=== PATIENT | male | born 1960 | race Caucasian/White ===

== ENCOUNTER 2023-06-15 14:37 | Outpatient (OUT) | payer BC, SELFPAY ==
--- NOTE | 2023-06-15 14:44 | ECG_ITS ---
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
[2023-06-15 15:35] LABS: Basophils Absolute Auto 0.1 10^3/uL (0.0-0.1); Basophils Percent Auto 0.9 % (0.2-2.0); Eosinophils Absolute Auto 0.7 10^3/uL (0.0-0.7); Eosinophils Percent Auto 8.2 % (0.9-7.0); Hematocrit 43.3 % (42.0-54.0); Hemoglobin 14.8 g/dL (14.0-18.0); Immature Granulocytes Abs Auto 0.03 10^3/uL (0.00-0.03); Immature Granulocytes Pct Auto 0.3 % (0.0-0.5); Lymphocytes Absolute Auto 2.3 10^3/uL (1.2-3.8); Lymphocytes Percent Auto 25.9 % (20.5-60.0); Mean Corpuscular HGB Conc 34.2 g/dL (29.9-35.2); Mean Corpuscular Hemoglobin 30.1 pg (25.9-34.0); Mean Corpuscular Volume 88.2 fL (80.0-94.0); Mean Platelet Volume 10.7 fL (9.5-13.5); Monocytes Absolute Auto 0.7 10^3/uL (0.3-0.8); Monocytes Percent Auto 7.5 % (1.7-12.0); Neutrophils Absolute Auto 5.1 10^3/uL (1.4-6.5); Neutrophils Percent Auto 57.2 % (43.0-75.0); Platelet Count 227 10^3/uL (150-450); Red Blood Count 4.91 10^6/uL (4.70-6.10); Red Cell Distribution Width 12.4 % (11.0-15.0); White Blood Count 8.9 10^3/uL (4.0-11.0)
[2023-06-15 15:59] LABS: Partial Thromboplastin Time 25.6 sec (22.3-36.2); Prothrombin Time 9.8 sec (9.0-11.6)
[2023-06-15 16:01] LABS: INR <0.93
[2023-06-15 16:08] LABS: Anion Gap 13.6; BUN Creatinine Ratio 13.5; Calcium 9.1 mg/dL (8.5-10.1); Carbon Dioxide 27.3 mmol/L (21.0-32.0); Chloride 102 mmol/L (98-107); Estimated GFR (African America >60 (>=60); Estimated GFR (Non-African Ame >60 (>=60); Glucose 101 mg/dL (74-106); Potassium 3.9 mmol/L (3.5-5.1); Sodium 139 mmol/L (136-145)
== END 2023-06-15 14:38 | disposition home or self-care (01) ==
LOC: PST 14:41
PROVIDERS: PCP Family Medicine; Visit Provider Urology
DX: Z01.810 Encounter for preprocedural cardiovascular examination (principal); Z01.812 Encounter for preprocedural laboratory examination; D49.4 Neoplasm of unspecified behavior of bladder; R31.9 Hematuria, unspecified; F31.9 Bipolar disorder, unspecified; H91.90 Unspecified hearing loss, unspecified ear; F32.A Depression, unspecified; Z87.820 Personal history of traumatic brain injury; J44.9 Chronic obstructive pulmonary disease, unspecified
CPT/HCPCS: 36415; 80048; 85025; 85610; 85730; 93005

== ENCOUNTER 2023-06-23 10:03 | Day surgery (SDC) | payer BC, MEDICAID, SELFPAY ==
[2023-06-15 15:02] VITALS: BP 130/97; PULSE 69; RESP 20; TEMP 36.5; O2SAT 97; BMI 28.8
[2023-06-23] VITALS (9 sets, daily range): BP systolic 118–151; BP diastolic 68–86; PULSE 57–78; RESP 16–20; TEMP 36.3; O2SAT 96–99; BMI 28.8
[2023-06-23] MEDS: LACTATED RINGER'S SOLUTION 1,000 ML 50 ML IV (11:06)
[2023-06-23] MEDS: CEFAZOLIN SODIUM/DEXTROSE,ISO 1 GM/50 ML IV.SOLN IV (12:04)
--- NOTE | 2023-06-23 13:03 | PM.URSON ---
Urology Surgery Operative Note Operative Note Procedure Date: 06/23/23 Time Out Performed: yes Pre-op Diagnosis: bladder tumor and gross hematuria Post-op Diagnosis: same as pre-op Procedures performed: #1. Cystoscopy. #2. Transurethral resection of bladder tumor approximately 3 cm. #3. Right rigid ureteral dilation.#4. Right ureteroscopy. #5. urethral dilation with [place] sounds to 28 Setswana. Anesthesia: JEFFERYA Primary Surgeon: Roosevelt Michel Complications: none Estimated blood loss (mL): 5 Findings: centimeter bladder tumor immediately adjacent to the right ureteral orifice Specimens: bladder tumor Indications for Procedures: this gentleman had gross hematuria which led to cystoscopy and his bladder tumor was identified. He now presents for TURBT and possible ureteroscopy and stent placement. He has signed an informed consent after all risks were explained. Detailed description of Procedure: The patient was brought to the operating room and placed on the operating room table in the supine position. SCDs were placed on the lower extremities and turned on and functioning during the entire case. Timeout was done by all parties in the room. We all agreed upon the patient's identification and the planned procedures for this patient. Gen endotracheal anesthesia was then administered. The patient was then repositioned into the modified dorsal lithotomy position. All pressure points were satisfactorily padded. 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 I then used [place] sounds and dilated his meatus up to 28 Setswana. I then was able to pass the resectoscope into the bladder. The tumor was visible immediately adjacent to the right UO. A then uniformly and deeply resected this tumor. I did not have to cut through the ureteral orifice although was very close. The resection bed was coagulated. All of the tumor was removed with the [facility] evacuator and this was sent for permanent sections. I then removed the ureter resectoscope verifying that no tumors were in the bladder. I then passed a 22 [place]wana Olympus cystoscope into the bladder and then slid a Glidewire through the scope and up the right ureter. Used a 8 and 10 [place]ana rigid dilator to dilate the distal right ureter. The cystoscope was removed. I then passed a semirigid ureteroscope over the wire and into the ureter. I looked into the distal 2-3 cm of the ureter and found no evidence of any tumors and the ureter was patent. I elected not to place a stent. The bladder was drained of its contents. There was no bleeding from the resection site. All tumor was removed from the bladder. The scope and wire were then removed. The anesthetic was then reversed. He was then transferred in a gurney bed to PACU in stable condition.
== END 2023-06-23 14:10 | disposition home or self-care (01) ==
PROVIDERS: PCP Family Medicine; Visit Provider Urology
PROC: (CPT 912; principal; 2023-06-23 11:20)
DX: C67.9 Malignant neoplasm of bladder, unspecified (principal); R31.9 Hematuria, unspecified; F31.9 Bipolar disorder, unspecified; H91.90 Unspecified hearing loss, unspecified ear; Z87.820 Personal history of traumatic brain injury; J44.9 Chronic obstructive pulmonary disease, unspecified; Z87.440 Personal history of urinary (tract) infections
CPT/HCPCS: 52235; 36415; 88307; J2704

== ENCOUNTER 2025-10-02 11:02 | Outpatient (OUT) | payer BC, MEDICAID, SELFPAY ==
--- NOTE | 2025-10-02 11:07 | ECG_ITS ---
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 Measurements Intervals [place] Rate: 56 P: 74 IN: 132 QRS: 81 QRSD: 108 T: 37 QT: 370 QTc: 359 Interpretive Statements SINUS BRADYCARDIA Borderline ECG Compared to ECG 06/15/2023 15:15:20 Heart rate has decreased by 7 BPM Electronically Signed On 10-02-2025 14:20:33 EST by IVORY PAULINO M.D.
--- NOTE | 2025-10-02 11:07 | XR_ITS ---
The [address] [address] Patient Name: JENNIFER RODAS MRN: [id number] date: 1960 Sex: M Assigned Patient Location: [facility] Current Patient Location: [facility] Accession/Order Number: [id number] Exam Date: 10/02/2025 11:58 Report Date: 10/02/2025 13:58 At the request of: JASVIR WATSON MD Procedure: XR chest 2V PA AND LATERAL CHEST: CLINICAL HISTORY: Preoperative clearance. History of tobacco use. COMPARISON: None The lungs are hyperinflated. There is no focal parenchymal consolidation, effusion or pneumothorax. The cardiac, hilar and mediastinal silhouettes are within normal limits. There are right paratracheal granulomas. There is no vascular congestion. The visualized bony thorax is intact. Tiny endplate spurs are seen. XR/XR chest 2V IMPRESSION: OBSTRUCTIVE LUNG DISEASE. NO ACUTE CARDIOPULMONARY ABNORMALITY. Impression dictated by: Ciara Deshpande M.D. 10/02/2025 1:58 PM Dictation Location: [place] [address] Electronically authenticated by: [id number] Y Date: 10/02/2025 13:58
[2025-10-02 12:20] LABS: Hematocrit 47.3 % (42.0-54.0); Hemoglobin 16.1 g/dL (14.0-18.0); Mean Corpuscular HGB Conc 34.0 g/dL (29.9-35.2); Mean Corpuscular Hemoglobin 30.6 pg (25.9-34.0); Mean Corpuscular Volume 89.8 fL (80.0-94.0); Platelet Count 240 10^3/uL (150-450); Red Blood Count 5.27 10^6/uL (4.70-6.10); White Blood Count 11.5 10^3/uL (4.0-11.0)
[2025-10-02 12:25] LABS: Anion Gap 11.8; Blood Urea Nitrogen 11.0 mg/dL (7.0-18.0); Calcium 9.0 mg/dL (8.5-10.1); Carbon Dioxide 29.5 mmol/L (21.0-32.0); Chloride 104 mmol/L (98-107); Estimated GFR (African America >60 (>=60 mL/min/1.73m^2); Estimated GFR (Non-African Ame >60 (>=60 mL/min/1.73m^2); Glucose 110 mg/dL (74-106); Potassium 4.3 mmol/L (3.5-5.1); Sodium 141 mmol/L (136-145)
[2025-10-02 12:36] LABS: INR 1.03; Partial Thromboplastin Time 25.1 sec (22.3-36.2); Prothrombin Time 10.8 sec (9.0-11.6)
[2025-10-02 13:54] LABS: Lymphocytes Absolute Manual 2.53 10^3/uL (1.20-3.80); Lymphocytes Percent Manual 22.0 % (20.5-60.0); Segmented Neut Absolute Manual 4.83 10^3/uL (1.4-6.5); Segmented Neutrophils % Manual 42.0 (43.0-75.0)
[2025-10-02 13:55] LABS: Basophils Abs Manual 0.11 10^3/uL (0.00-0.10); Basophils Percent Manual 1.0 % (0.2-2.0); Eosinophils Absolute Manual 3.22 10^3/uL (0.00-0.70); Eosinophils Percent Manual 28.0 % (0.9-7.0); Monocytes Absolute Manual 0.80 10^3/uL (0.30-0.80); Monocytes Percent Manual 7.0 % (1.7-12.0)
== END 2025-10-02 11:03 | disposition home or self-care (01) ==
LOC: PST 11:04
PROVIDERS: PCP Family Medicine; Visit Provider Urology
DX: Z01.810 Encounter for preprocedural cardiovascular examination (principal); Z01.812 Encounter for preprocedural laboratory examination; D49.4 Neoplasm of unspecified behavior of bladder
CPT/HCPCS: 36415; 71046; 80048; 85007; 85027; 85610; 85730; 93005

== ENCOUNTER 2025-10-03 10:08 | Day surgery (SDC) | payer BC, MEDICAID, SELFPAY ==
[2025-10-02 11:09] VITALS: BMI 28.5
[2025-10-02 11:14] VITALS: BP 139/80; PULSE 68; TEMP 36.3; O2SAT 97
[2025-10-03] VITALS (11 sets, daily range): BP systolic 124–150; BP diastolic 71–92; PULSE 61–79; TEMP 36.4; O2SAT 94–98; BMI 28.9
[2025-10-03] MEDS: IPRATROPIUM/ALBUTEROL SULFATE 3 ML AMPUL.NEB IH (10:33)
[2025-10-03] MEDS: CEFAZOLIN SODIUM 2 GM/50 ML D5W PREMIX IV (12:19)
--- NOTE | 2025-10-03 13:11 | PM.URSON ---
Urology Surgery Operative Note Operative Note Procedure Date: 10/03/25 Time Out Performed: yes Pre-op Diagnosis: Recurrent bladder tumors Post-op Diagnosis: same as pre-op Procedures performed: 1. Cystoscopy. 2. Transurethral resection of bladder tumors approximately 2 cm Anesthesia: BRANDON Primary Surgeon: Roosevelt Michel Complications: None Estimated blood loss (mL): 2 Findings: 2, papillary 1 cm bladder tumors. 1 area that was concerning for bladder tumor but it was not raised. Specimens: Bladder tumors Drains: None Indications for Procedures: This gentleman has recurrent bladder tumors on surveillance cystoscopy. His original path in 2022 was low-grade noninvasive. He has not quit smoking. He now presents for TURBT. He has signed an informed consent after risks were explained. Detailed description of Procedure: The patient was brought to the operating room and placed on the operating room table in the supine position. SCDs were placed on the lower extremities and turned on and functioning during the entire case. Timeout was done by all parties in the room. We all agreed upon the patient's identification and the planned procedures for this patient. Genn. anesthesia was then administered. The patient was then repositioned into the modified dorsal lithotomy position. All pressure points were satisfactorily padded. Genitalia were sterilely prepped and draped in usual fashion. I started by passing a 26 [place] Olympus resectoscope with a standard bipolar loop electrode per urethra and into the bladder. I carefully inspected the entire bladder. The previously noted tumors on surveillance cystoscopy were identified on the anterior wall. There was 1 other nonraised area of tumor. This area was simply coagulated. The other 2 areas were uniformly and deeply resected. The resection beds were coagulated. The [place] evacuator was used to get the tumors out and these were sent for permanent sections. Upon completion, there was no evidence of bleeding. There were no other tumors or lesions noted in the bladder. The bladder was drained of its contents and the scope was then removed. The anesthetic was then reversed. He was then transferred to a [facility] bed and wheeled to PACU in stable condition.
--- NOTE | 2025-10-03 13:13 | RESP.RT ---
RT busy, given by RN
--- NOTE | 2025-10-03 13:35 | PC.NURSE ---
ppatient attempting to urinate at bedside in urinal, no success
--- NOTE | 2025-10-03 15:22 | PC.NURSE ---
1515:pt voids without difficulty.
== END 2025-10-03 15:22 | disposition home or self-care (01) ==
PROVIDERS: Visit Provider Urology
PROC: (CPT 912; principal; 2025-10-03 11:30)
DX: D30.3 Benign neoplasm of bladder (principal); Z85.51 Personal history of malignant neoplasm of bladder; F31.9 Bipolar disorder, unspecified; Z80.42 Family history of malignant neoplasm of prostate; J44.9 Chronic obstructive pulmonary disease, unspecified; F17.210 Nicotine dependence, cigarettes, uncomplicated; M19.90 Unspecified osteoarthritis, unspecified site; F41.9 Anxiety disorder, unspecified
CPT/HCPCS: 52234; 36415; 88307; 88341; 88342; 88360; 94640; J0690; J1100; J2250; J2405; J2704; J3010